=== PATIENT | female | born 1990 | race Caucasian/White ===

== ENCOUNTER 2017-11-28 17:23 | Emergency (ER) | payer OTHER ==
--- NOTE | 2017-11-28 17:54 | UC ---
Ear Complaint HPI - HPI Summary HPI Summary: 27 yo female presents with left ear pain intermittently for the last month. Last night was much worse with sharp pain. Over the last month has been taking mucinex, tylenol, and naproxen with intermittent relief. Denies trouble hearing , headache, dizziness, fever, chills, sore throat, dental pain. - History of Current Complaint Stated Complaint: LEFT EAR PAIN Time Seen by Provider: 11/28/17 17:54 Hx Obtained From: Patient Hx Last Menstrual Period: 2 WEEKS AGO Onset/Duration: Gradual Onset Severity Initially: Mild Severity Currently: Moderate Pain Intensity: 6 Pain Scale Used: 0-10 Numeric - Allergies/Home Medications Allergies/Adverse Reactions: Allergies Allergy/AdvReac Type Severity Reaction Status Date / Time clavulanic acid Allergy Hives Verified 11/28/17 17:48 Home Medications: Home Medications Acetaminophen [Acetaminophen Extra Strength] 1,000 mg PO Q6H PRN 11/28/17 [ History Confirmed 11/28/17] Albuterol HFA INHALER* [Ventolin HFA Inhaler*] 1 - 2 puff INH Q4H PRN 11/28/17 [ History Confirmed 11/28/17] Canagliflozin/Metformin HCl [Invokamet 50-500 mg] 1 tab PO DAILY 11/28/17 [ History Confirmed 11/28/17] Lisinopril TAB* [Prinivil TAB*] 20 mg PO DAILY 11/28/17 [History Confirmed 11/28] Naproxen Sodium [Aleve] 440 mg PO Q12H PRN 11/28/17 [History Confirmed 11/28/17] guaiFENesin [Guaifenesin] 400 mg PO Q4H PRN 11/28/17 [History Confirmed 11/28/17 ] PMH/Surg Hx/FS Hx/Imm Hx Endocrine History: Diabetes Cardiovascular History: Hypertension Respiratory History: Asthma - Surgical History Surgical History: None - Family History Known Family History: Positive: None - Social History Occupation: Employed Full-time Lives: With Family Alcohol Use: None Substance Use Type: None Review of Systems Constitutional: Negative Skin: Negative Eyes: Negative ENT: Ear Ache Respiratory: Negative Cardiovascular: Negative Gastrointestinal: Negative Neurovascular: Negative Neurological: Negative Psychological: Negative All Other Systems Reviewed And Are Negative: Yes Physical Exam - Summary Physical Exam Summary: GENERAL: NAD. WDWN. No pain distress. SKIN: No rashes, sores, lesions, or open wounds. HEENT: Head: AT/NC Eyes: EOM intact. Conjunctiva clear without inflammation or discharge. Ears: Hearing grossly normal. RIGHT TM: WNL. Left TM: with mild white discharge and edema. Nose: Nasal mucosa pink and moist. NTTP maxillary and frontal sinus. Throat: Posterior oropharynx without exudates, erythema, or tonsillar enlargement. Uvula midline. NECK: Supple. Nontender. No lymphadenopathy. CHEST: CTAB. No r/r/w. No accessory muscle use. Breathing comfortably and in no distress. CV: RRR. Without m/r/g. Pulses intact. Brisk cap refill. NEURO: Alert. CN II-XII grossly intact. PSYCH: Age appropriate behavior. Triage Information Reviewed: Yes Vital Signs: Vital Signs: Temp Pulse Resp BP Pulse Ox 99.2 F 94 18 132/85 100 11/28/17 17:46 11/28/17 17:46 11/28/17 17:46 11/28/17 17:46 11/28/17 17:46 Ear Complaint Course/Dx - Course Course Of Treatment: Otitis externa left - Differential Dx/Diagnosis Provider Diagnoses: Otitis externa left Discharge - Sign-Out/Discharge Documenting (check all that apply): Discharge/Admit/Transfer - Discharge Plan Condition: Stable Disposition: HOME Prescriptions: Neomyc/Polym/HC 1% OTIC SUSP* [Cortisporin Otic Susp 1%*] 4 drop LEFT EAR TID # 1 btl Patient Education Materials: Otitis Externa (ED) Referrals: Marilia Rodriguez MD [Primary Care Provider] - Additional Instructions: If you develop a fever, shortness of breath, chest pain, new or worsening symptoms - please call your PCP or go to the ED. Your blood pressure was high at todays visit. Please see your primary provider within 4 weeks for recheck and re-evaluation. - Billing Disposition and Condition Condition: STABLE Disposition: Home
[2017-11-28 17:55] VITALS: BP 132/85
== END 2017-11-28 18:15 | disposition home or self-care (01) ==
LOC: UCCORT 17:23
DX: H60.92 Unspecified otitis externa, left ear (principal); E11.9 Type 2 diabetes mellitus without complications; I10 Essential (primary) hypertension; J45.909 Unspecified asthma, uncomplicated; Z79.899 Other long term (current) drug therapy; Z88.1 Allergy status to other antibiotic agents
CPT/HCPCS: 99212; G0463

== ENCOUNTER 2017-12-26 14:40 | Emergency (ER) | payer OTHER ==
[2017-12-26 14:55] VITALS: BP 113/70
--- NOTE | 2017-12-26 15:10 | UC ---
Ear Complaint HPI - HPI Summary HPI Summary: Pt presents with c/o bilateral ear fullness and "plugged" feeling. Pt was recently treated for otitis externa with neomyxin-polytrim ear drops and notes marked improvement. Pt states that bilateral ears continue to feel "full" and "plugged" and that they need to be "popped". - History of Current Complaint Chief Complaint: UCEar Stated Complaint: PLUGGED EARS Time Seen by Provider: 12/26/17 14:49 Hx Obtained From: Patient Hx Last Menstrual Period: 12/23/17 ?: No Onset/Duration: Gradual Onset, Lasting Days, Still Present Severity Initially: Mild Severity Currently: Mild Pain Intensity: 0 - Allergies/Home Medications Allergies/Adverse Reactions: Allergies Allergy/AdvReac Type Severity Reaction Status Date / Time clavulanic acid Allergy Hives Verified 12/26/17 14:55 PMH/Surg Hx/FS Hx/Imm Hx Previously Healthy: Yes - Surgical History Surgical History: None - Family History Known Family History: Positive: Cardiac Disease - Social History Occupation: Employed Full-time Lives: With Family Alcohol Use: None Substance Use Type: None Smoking Status (MU): Never Smoked Tobacco Have You Smoked in the Last Year: No Review of Systems Constitutional: Negative Skin: Negative Eyes: Negative ENT: Ear Ache Respiratory: Negative Cardiovascular: Negative Gastrointestinal: Negative Genitourinary: Negative Motor: Negative Neurovascular: Negative Musculoskeletal: Negative Neurological: Negative Psychological: Negative Is Patient Immunocompromised?: No All Other Systems Reviewed And Are Negative: Yes Physical Exam Triage Information Reviewed: Yes Appearance: Well-Appearing Vital Signs: Initial Vital Signs Temp 97.6 F 12/26/17 14:50 Pulse 88 12/26/17 14:50 Resp 16 12/26/17 14:50 BP 113/70 12/26/17 14:50 Pulse Ox 100 12/26/17 14:50 Vital Signs Reviewed: Yes Eye Exam: Normal ENT Exam: Other ENT: Positive: Normal ENT inspection, Other - bilateral TM's flat and without erythema, swelling or discharge. Dental Exam: Normal Neck exam: Normal Respiratory Exam: Normal Cardiovascular Exam: Normal Musculoskeletal Exam: Normal Neurological Exam: Normal Psychological Exam: Normal Skin Exam: Normal Ear Complaint Course/Dx - Course Course Of Treatment: I discussed with the pt that her ear drums were not bulging , erythematous and without external ear swelling. - Differential Dx/Diagnosis Differential Diagnosis/HQI/PQRI: Barotrauma, Otitis Externa, Otitis Media Provider Diagnoses: bilateral ear pain Discharge - Sign-Out/Discharge Documenting (check all that apply): Discharge/Admit/Transfer - Discharge Plan Condition: Stable Disposition: HOME Prescriptions: Cetirizine HCl/Pseudoephedrine [Zyrtec-D Tablet] 1 each PO DAILY #10 tab.er.12h Patient Education Materials: Earache (ED) Referrals: Marilia Rodriguez MD [Primary Care Provider] - If Needed - Billing Disposition and Condition Condition: STABLE Disposition: Home
== END 2017-12-26 15:15 | disposition home or self-care (01) ==
LOC: UCCORT 14:40
DX: H92.03 Otalgia, bilateral (principal); Z88.8 Allergy status to other drugs, medicaments and biological substances
CPT/HCPCS: 99212; G0463